=== PATIENT | male | born 1960 | race Caucasian/White ===

== ENCOUNTER 2018-12-15 11:04 | Emergency (ER) | payer SELFPAY | END 2018-12-15 12:44 | disposition home or self-care (01) | LOC: FTE 11:04 | DX: S16.1XXA Strain of muscle, fascia and tendon at neck level, initial encounter (principal); S20.212A Contusion of left front wall of thorax, initial encounter; V49.40XA Driver injured in collision with unspecified motor vehicles in traffic accident, initial encounter | CPT/HCPCS: 70140; 71100; 72040; 99284-25 ==